=== PATIENT | male | born 1945 | race African-American/Black ===

== ENCOUNTER 2019-12-12 02:17 | Outpatient (CLI) | payer MEDICARE, SELFPAY ==
[2019-12-12 18:39] LABS: SARS-CoV-2 RNA PCR Negative
== END 2019-12-12 02:18 | disposition home or self-care (01) ==
LOC: ANHCOVIDDT 02:17
PROVIDERS: PCP Family Medicine; Visit Provider Internal Medicine Gastroenterology
DX: Z01.812 Encounter for preprocedural laboratory examination (principal); Z11.59 Encounter for screening for other viral diseases
CPT/HCPCS: 87635; C9803; U0003

== ENCOUNTER 2019-12-14 01:49 | Day surgery (SDC) | payer MEDICARE, SELFPAY ==
[2019-12-10 10:16] VITALS: BMI 29.3
[2019-12-14 08:52] VITALS: BP 172/83; PULSE 86; RESP 18; TEMP 36.2; O2SAT 99
[2019-12-14 09:12] LABS: Glucose Point of Care 118 (65-105)
[2019-12-14] MEDS: LACTATED RINGERS 1,000 ML 150 ML IV CONT (09:16)
[2019-12-14 09:28] LABS: INR 1.1; Prothrombin Time 13.4 Seconds (11.1-14.7)
--- NOTE | 2019-12-14 09:28 | WPDGICN ---
Assessment and Plan Assessment and plan (1) History of colon polyps: Code(s): Z86.010 - Personal history of colonic polyps Status: Acute Assessment and Plan: Plan is for surveillance colonoscopy today is been 7 years since last endoscopy. High-fiber diet advised. Further recommendations will be given after colonoscopy. (2) Paroxysmal atrial fibrillation: Code(s): I48.0 - Paroxysmal atrial fibrillation Status: Acute (3) Diabetes: Code(s): E11.9 - Type 2 diabetes mellitus without complications Status: Acute (4) Hypertension: Code(s): I10 - Essential (primary) hypertension Status: Acute GI Consult Note Consult date/time: 12/14/19 09:28 HPI: Pb Clarke is a 74 year old male seen in evaluation at the request of Dr Amelia Jc. Patient presents for surveillance colonoscopy. Patient has a history of adenomatous colon polyps removed from the colon . most recent colonoscopy was in 2012. Patient states his current weight appetite bowel movements are normal. He currently denies abdominal pain. His bowel habits are regular. He denies any obvious blood in his stools. Family history is normal. No family history of colon or rectal disease described. Review of Systems Review of Systems: All systems reviewed & are unremarkable except as noted in HPI and below PMFSH Past Medical History Medical History Anemia Anxiety Cellulitis LEFT LEG Diabetes Elective replacement indicated for pacemaker (~2009) Hypertension Migraine Mixed hyperlipidemia Normal colonoscopy Paroxysmal atrial fibrillation Stroke WPW syndrome Surgical History Surgical History History of nasal septoplasty Family History Family History Other Arthritis Cerebrovascular accident Diabetes mellitus Hypertension Social History Social History Smoking status: Never smoker Second hand tobacco smoke exposure: No Alcohol intake: never Substance use: never Meds Home Medications and Allergies Home Medications Medication Instructions Recorded Confirmed Type metoprolol succinate 100 mg 100 mg PO BID #180 tablet 05/02/19 12/10/19 Rx tablet,extended release 24 hr propafenone 150 mg tablet 150 mg PO Q8H #180 tablet 05/02/19 12/10/19 Rx amlodipine 5 mg tablet 5 mg PO DAILY #90 tablet 05/24/19 12/10/19 Rx atorvastatin 20 mg tablet 20 mg PO DAILY #90 tablet 05/24/19 12/10/19 Rx gabapentin 300 mg capsule 300 mg PO DAILY #90 cap 05/24/19 12/10/19 Rx hydralazine 10 mg tablet 10 mg PO TID #270 tablet 05/24/19 12/10/19 Rx latanoprost 0.005 % eye drops 1 drop EACH EYE DAILY #225 ml 05/24/19 12/10/19 Rx metformin 1,000 mg tablet 1,000 mg PO BID #180 tablet 05/24/19 12/10/19 Rx potassium chloride 10 mEq 10 meq PO DAILY #90 tablet 07/03/19 12/10/19 Rx tablet,extended release insulin detemir U-100 100 unit/mL See Rx Instructions .ROUTE 08/19/19 12/10/19 Rx (3 mL) subcutaneous pen .COMPLEX #30 ml furosemide 40 mg tablet 40 mg PO QAM #90 tablet 09/27/19 12/10/19 Rx losartan 100 mg tablet 100 mg PO DAILY #90 tablet 09/27/19 12/10/19 Rx warfarin 3 mg tablet See Rx Instructions .ROUTE 10/01/19 12/10/19 Rx .COMPLEX #90 tablet pen needle, diabetic 31 gauge x See Rx Instructions .ROUTE 11/15/19 12/10/19 Rx 5/16 .COMPLEX #100 each Allergies Allergy/AdvReac Type Severity Reaction Status Date / Time No Known Allergies Allergy Verified 12/14/19 08:50 Vital Signs Vital Signs - 24 hr 12/14/19 08:52 Temperature 97.1 F L Pulse Rate 86 Respiratory Rate 18 Blood Pressure 172/83 H Pulse Oximetry 99 Exam Narrative: Exam Narrative: Physical exam reveals patient to be alert. Vital signs stable. HEENT exam unremarkable. Lungs are clear to auscultation and percussio
--- NOTE | 2019-12-14 09:41 | WPDANESEPPF ---
Anes - Initial Pre Proc Eval Procedure: Operation Date: 12/14/19 10:00 Proposed Procedures p Screening Colonoscopy - Ever Renteria MD Date/Time: 12/14/19 09:41 Surgeon: Ever Renteria MD Pre Op Diagnosis: Hx of Colon Polyps Patient Data Age: 74 Gender: M Height: 5 ft 7 in Weight: 85.8 kg Last Vital Signs Temp 97.1 F L 12/14/19 08:52 Pulse 86 12/14/19 08:52 Resp 18 12/14/19 08:52 BP 172/83 H 12/14/19 08:52 Pulse Ox 99 12/14/19 08:52 Allergies Allergy/AdvReac Type Severity Reaction Status Date / Time No Known Allergies Allergy Verified 12/14/19 08:50 Home Medications Medication Instructions Recorded Confirmed Type metoprolol succinate 100 mg 100 mg PO BID #180 tablet 05/02/19 12/10/19 Rx tablet,extended release 24 hr propafenone 150 mg tablet 150 mg PO Q8H #180 tablet 05/02/19 12/10/19 Rx amlodipine 5 mg tablet 5 mg PO DAILY #90 tablet 05/24/19 12/10/19 Rx atorvastatin 20 mg tablet 20 mg PO DAILY #90 tablet 05/24/19 12/10/19 Rx gabapentin 300 mg capsule 300 mg PO DAILY #90 cap 05/24/19 12/10/19 Rx hydralazine 10 mg tablet 10 mg PO TID #270 tablet 05/24/19 12/10/19 Rx latanoprost 0.005 % eye drops 1 drop EACH EYE DAILY #225 ml 05/24/19 12/10/19 Rx metformin 1,000 mg tablet 1,000 mg PO BID #180 tablet 05/24/19 12/10/19 Rx potassium chloride 10 mEq 10 meq PO DAILY #90 tablet 07/03/19 12/10/19 Rx tablet,extended release insulin detemir U-100 100 unit/mL See Rx Instructions .ROUTE 08/19/19 12/10/19 Rx (3 mL) subcutaneous pen .COMPLEX #30 ml furosemide 40 mg tablet 40 mg PO QAM #90 tablet 09/27/19 12/10/19 Rx losartan 100 mg tablet 100 mg PO DAILY #90 tablet 09/27/19 12/10/19 Rx warfarin 3 mg tablet See Rx Instructions .ROUTE 10/01/19 12/10/19 Rx .COMPLEX #90 tablet pen needle, diabetic 31 gauge x See Rx Instructions .ROUTE 11/15/19 12/10/19 Rx /16 .COMPLEX #100 each Laboratory Tests 12/14/19 12/14/19 08:55 08:58 PT 13.4 Seconds Seconds (11.1-14.7) INR 1.1 POC Capillary Glucose 118 mg/dl H mg/dl (65-105) Patient hx anesthesia problems: none Family hx anesthesia problems: none PMFSH Past Medical History Medical History Anemia Anxiety Cellulitis LEFT LEG Diabetes Elective replacement indicated for pacemaker (~2009) Hypertension Migraine Mixed hyperlipidemia Normal colonoscopy Paroxysmal atrial fibrillation Stroke WPW syndrome Surgical History Surgical History History of nasal septoplasty Family History Family History Other Arthritis Cerebrovascular accident Diabetes mellitus Hypertension Social History Social History Smoking status: Never smoker Second hand tobacco smoke exposure: No Alcohol intake: never Substance use: never Anes - Eval Final PreProcedure Day of Procedure 12/14/19 09:41 Patient weight: normal Heart: irregular rhythm Lungs: clear to auscultation Airway: Mallampati scale class II Neurological: alert and oriented Last oral intake: >/= 8 hours ASA classification: III Emergent: no Anesthetic plan: proceed Anesthesia type and monitoring: general GIVS and standard monitoring Informed Consent: The patient's anesthetic plan and its attendant risks and benefits were discussed with the patient/family/POA. Questions were solicited and answers provided to the satisfaction of the patient/family/POA.
[2019-12-14 10:38] VITALS: BP 125/66; PULSE 64; RESP 21; O2SAT 100
[2019-12-14 10:48] VITALS: BP 136/67; PULSE 65; RESP 21; O2SAT 100
[2019-12-14 10:53] LABS: Glucose Point of Care 112 (65-105)
[2019-12-14 10:58] VITALS: BP 132/79; PULSE 60; RESP 21; O2SAT 100
== END 2019-12-14 11:10 | disposition home or self-care (01) ==
PROVIDERS: PCP Family Medicine; Visit Provider Internal Medicine Gastroenterology
PROC: 0DJD8ZZ Inspection of Lower Intestinal Tract, Via Natural or Artificial Opening Endoscopic (ICD-10-PCS; CPT 45378; principal; 2019-12-14 10:00)
DX: Z12.11 Encounter for screening for malignant neoplasm of colon (principal); D12.5 Benign neoplasm of sigmoid colon; K63.5 Polyp of colon; K64.8 Other hemorrhoids; I10 Essential (primary) hypertension; I48.0 Paroxysmal atrial fibrillation; E11.9 Type 2 diabetes mellitus without complications; E78.2 Mixed hyperlipidemia; I45.6 Pre-excitation syndrome; Z79.84 Long term (current) use of oral hypoglycemic drugs; Z79.4 Long term (current) use of insulin; Z79.01 Long term (current) use of anticoagulants
CPT/HCPCS: 45385; 36415; 85610; 87635; 88305; C9803; J2001; J2704; J7120; U0003

== ENCOUNTER 2020-07-21 11:21 | Outpatient (CLI) | payer MEDICARE, SELFPAY ==
--- NOTE | ~2020-07-21 | US_ITS ---
EXAMINATION: US renal BI EXAM DATE: 07/21/2020 11:53 INDICATION: N18.30 - Chronic kidney disease, stage 3 unspecified. TECHNIQUE: Multiple grayscale and Doppler images of the kidneys were obtained (by a technologist who performed the scan) and subsequently reviewed. There is no prior study for comparison. FINDINGS: Right kidney: There is normal contour and echogenicity. It measures 8.6 x 4.7 x 3.7 centimeters. Th ere are no focal renal lesions identified. There is no hydronephrosis. Left kidney: Suboptimally visualized. There is normal contour and echogenicity. It measures 8.7 x 4. 3 x 4.4 centimeters. There are no focal renal lesions identified. There is no hydronephrosis. Bladder is undistended, unremarkable. IMPRESSION: 1. Mild bilateral renal atrophy. Reviewed, dictated and finalized at location A. ENT SERVICES COORDINATOR
== END 2020-07-21 11:22 | disposition home or self-care (01) ==
LOC: ANHIMG 11:30
PROVIDERS: PCP Family Medicine; Visit Provider Family Medicine
DX: N18.30 Chronic kidney disease, stage 3 unspecified (principal)
CPT/HCPCS: 76775

== ENCOUNTER 2020-09-22 08:13 | Outpatient (CLI) | payer MEDICARE, SELFPAY ==
--- NOTE | ~2020-09-22 | US_ITS ---
EXAMINATION: US retroperitoneal duplex ltd DATE: 09/22/2020 09:34 INDICATION: Essential hypertension TECHNIQUE: Multiple grayscale, color Doppler, and pulsed Doppler images of the kidneys and renal alexsandra machelle were obtained. COMPARISON: None. FINDINGS: The aorta peak systolic velocity is 58 cm/s. The right renal artery peak systolic velocity is 144 cm/ s in the proximal segment, 67 cm/s in the mid segment, and 79 cm/s in the distal segment. The left re nal artery peak systolic velocity is 89 cm/s in the proximal segment, 97 cm/s in the mid segment, and 73 cm/s in the distal segment. Right kidney measures 8.8 x 4.2 x 4.7 cm with normal echogenicity and no hydronephrosis. Left kidney measures 9.7 x 5.2 x 4.3 cm also with normal echogenicity and no hydr onephrosis. 3.1 cm anechoic cyst at the medial left kidney. There are elevated bilateral renal artery resistive indices measuring 0.68-0.77 on the right and 0.77 on the left. The bilateral renal veins a re patent with asymmetric increased pulsatility on the left. IMPRESSION: 1. No Doppler evidence of renal artery stenosis. 2. Bilateral elevated resistive indices of the renal arteries within both kidneys. Reviewed, dictated and finalized at location A. IMPRESSION: 1. No Doppler evidence of renal artery stenosis. 2. Bilateral elevated resistive indices of the renal arteries within both kidne ys.
== END 2020-09-22 08:14 | disposition home or self-care (01) ==
PROVIDERS: PCP Family Medicine; Visit Provider Internal Medicine Nephrology
DX: I10 Essential (primary) hypertension (principal); R80.1 Persistent proteinuria, unspecified
CPT/HCPCS: 93976

== ENCOUNTER 2022-03-19 14:15 | Outpatient (CLI) | payer MEDICARE, SELFPAY ==
--- NOTE | ~2022-03-19 | XR_ITS ---
EXAMINATION: XR lumbar spine min 4V DATE: 03/19/2022 14:40 INDICATION: Chronic bilateral low back pain radiating down the right leg. TECHNIQUE: 5 views of lumbar spine were obtained. COMPARISON: Lumbar spine radiographs 05/06/2018, lumbar spine CT 01/13/2010 FINDINGS: There is 23 degrees dextroscoliosis of lumbar spine. Vertebral body heights are normal. The re is mildly decreased disc height at L1-L2 and L2-L3 and moderately decreased disc height at L3-L4 a nd L4-L5. There is multilevel moderate to severe facet joint osteoarthritis. IMPRESSION: 1. Moderate lumbar spondylosis. 2. Thoracolumbar dextroscoliosis. Reviewed, dictated and finalized at location A.
--- NOTE | ~2022-03-19 | XR_ITS ---
EXAMINATION: XR cervical spine 4-5V DATE: 03/19/2022 14:40 INDICATION: Chronic right-sided neck pain. TECHNIQUE: 4 views of cervical spine were obtained. COMPARISON: Cervical spine radiographs 12/20/2010 FINDINGS: There is 16 degrees levoscoliosis of cervicothoracic spine. There is mild kyphosis of cervi gerald spine. Vertebral body heights are normal. There is mildly decreased disc height at C4-C5, C5-C6, and C6-C7. There is multilevel uncovertebral joint osteoarthritis, severe bilaterally from C4-C5 thro ugh C6-C7. There is multilevel mild to moderate facet joint osteoarthritis, worst on the right at C3- C4 and C4-C5.. There is mild central canal stenosis at C4-C5, C5-C6, and C6-C7. No prevertebral soft tissue swelling. IMPRESSION: 1. Moderate cervical spondylosis. 2. Cervicothoracic levoscoliosis. Reviewed, dictated and finalized at location A.
--- NOTE | ~2022-03-19 | CT_ITS ---
EXAMINATION: CT brain wo/w con DATE: 03/19/2022 14:51 INDICATION: Disturbance. Memory loss. TECHNIQUE: Computed tomography (CT) of the head was performed without and with 100 cc Omnipaque 350 n o depressed skull fractures. intravenous contrast. The dose-length product was 1210.67 mGy-cm. Automa nate exposure control and iterative reconstruction technique were employed. COMPARISON: None FINDINGS: Mild generalized atrophy. There are scattered mild periventricular and subcortical white ma tter changes, most likely related to small vessel ischemic disease (microangiopathy). No ventriculome soto or midline shift. Basilar cisterns are patent. Paranasal sinuses and mastoids are pneumatized. N o depressed skull fractures. No abnormal contrast enhancement IMPRESSION: 1. No acute intracranial abnormality. 2: Chronic age-related findings. Reviewed, dictated and finalized at location B.
[2022-03-19 14:46] LABS: Estimated Glomerular Filt Rate 55
== END 2022-03-19 14:16 | disposition home or self-care (01) ==
LOC: ANHIMG 14:18
PROVIDERS: PCP Family Medicine; Visit Provider Family Medicine
DX: R41.3 Other amnesia (principal); R26.9 Unspecified abnormalities of gait and mobility; R20.2 Paresthesia of skin; M47.896 Other spondylosis, lumbar region; M47.892 Other spondylosis, cervical region
CPT/HCPCS: 70470; 72050; 72110; Q9967

== ENCOUNTER 2023-01-12 14:30 | Outpatient (RCR) | payer MEDICARE, SELFPAY ==
[2022-11-04 10:46] VITALS: BMI 28.3
[2022-11-04 11:13] VITALS: BMI 28.3
== END 2023-01-19 09:52 | disposition home or self-care (01) ==
LOC: ANHDMC 14:30
PROVIDERS: PCP Family Medicine; Visit Provider Family Medicine
DX: E11.65 Type 2 diabetes mellitus with hyperglycemia (principal); Z71.3 Dietary counseling and surveillance; Z71.89 Other specified counseling
CPT/HCPCS: 97802; G0108; G0109

== ENCOUNTER 2023-04-07 15:12 | Outpatient (RCR) | payer MEDICARE, SELFPAY | END 2023-04-08 16:27 | disposition home or self-care (01) | LOC: ANHDMC 15:12 | PROVIDERS: PCP Family Medicine; Visit Provider Family Medicine | DX: E11.65 Type 2 diabetes mellitus with hyperglycemia (principal); Z71.89 Other specified counseling | CPT/HCPCS: G0109 ==

== ENCOUNTER 2023-10-25 12:15 | Outpatient (CLI) | payer MEDICARE, SELFPAY ==
--- NOTE | 2023-10-25 12:24 | ECG_ITS ---
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 Measurements Intervals [place] Rate: 77 P: 214 MS: 256 QRS: -56 QRSD: 86 T: 31 QT: 357 QTc: 406 Interpretive Statements ELECTRONIC ATRIAL PACEMAKER MARKED LEFT AXIS DEVIATION [QRS AXIS < -30] LOW QRS VOLTAGE [QRS DEFLECTION < 0.5/1.0 mV IN LIMB/CHEST LEADS] INFERIOR MYOCARDIAL INFARCTION , PROBABLY OLD [40+ ms Q WAVE AND/OR ST/T ABNORMALITY IN II/aVF] ANTEROSEPTAL MYOCARDIAL INFARCTION , PROBABLY OLD [40+ ms Q WAVE IN V1-V4] No previous ECG available for comparison Electronically Signed On 10-25-2023 14:26:47 CDT by Wero Yuan M.D.
== END 2023-10-25 12:16 | disposition home or self-care (01) ==
LOC: ANHCARD 12:17
PROVIDERS: PCP Family Medicine; Visit Provider Family Medicine
DX: I48.0 Paroxysmal atrial fibrillation (principal); Z95.0 Presence of cardiac pacemaker
CPT/HCPCS: 93005

== ENCOUNTER 2023-12-19 13:33 | Outpatient (CLI) | payer MEDICARE, SELFPAY ==
--- NOTE | ~2023-12-19 | US_ITS ---
EXAMINATION: US soft tissue head and neck DATE: 12/19/2023 13:48 INDICATION: Disorder of thyroid, unspecified. TECHNIQUE: Multiple ultrasound images of the thyroid were obtained. COMPARISON: None. FINDINGS: The right thyroid lobe measures 5.1 x 1.9 x 1.7 cm. The left thyroid lobe measures 4.5 x 1.5 x 1.5 c m. In the left thyroid lobe, there is an 18 mm solid, hypoechoic, wider than tall nodule with ill-de fined margin without echogenic foci (TI-RADS TR4). In the left thyroid lobe, there are two 5 mm solid , hypoechoic, wider than tall nodules with smooth margin without echogenic foci (TR4). IMPRESSION: 1. Thyroid nodules. Ultrasound-guided fine-needle aspiration of the 18 mm left thyroid nodule is breanna mmended. Reviewed, dictated and finalized at location A. IMPRESSION: 1. Thyroid nodules. Ultrasound-guided fine-needle aspiration of the 18 mm left thyroid nodule is recommended.
== END 2023-12-19 13:34 ==
PROVIDERS: PCP Family Medicine; Visit Provider Student in an Organized Health Care Education/Training Program
DX: E07.9 Disorder of thyroid, unspecified (principal); E04.2 Nontoxic multinodular goiter
CPT/HCPCS: 76536

== ENCOUNTER 2024-02-13 12:38 | Outpatient (CLI) | payer MEDICARE, SELFPAY ==
--- NOTE | ~2024-02-13 | US_ITS ---
EXAMINATION: US FNA w image guidance DATE: 02/13/2024 13:57 INDICATION: Nontoxic single thyroid nodule. TECHNIQUE: The procedure and its benefits and risks were discussed with the patient. Risks specifically discusse d included bleeding. The patient verbalized understanding of the risks and agreed to proceed. The nec k was prepped and draped in the usual sterile manner. 1% lidocaine was used for local anesthesia. 6 passes were made with a 25G needle into the lesion under ultrasound guidance. There were no immedia te complications. FINDINGS: Grayscale ultrasound images demonstrate needles advanced into an 18 mm nodule in left thyroid lobe fo r biopsy. IMPRESSION: 1. Ultrasound-guided fine needle aspiration of a left thyroid nodule. Reviewed, dictated and finalized at location A.
== END 2024-02-13 12:39 | disposition home or self-care (01) ==
LOC: ANHIMG 12:40
PROVIDERS: PCP Family Medicine; Visit Provider Family Medicine
DX: E04.1 Nontoxic single thyroid nodule (principal)
CPT/HCPCS: 10005; 88172; 88173; 88305; 88307

== ENCOUNTER 2024-12-25 10:30 | Outpatient (CLI) | payer MEDICARE, SELFPAY ==
--- NOTE | ~2024-12-25 | US_ITS ---
EXAMINATION: US thyroid DATE: 12/25/2024 10:57 INDICATION: Nontoxic single thyroid nodule TECHNIQUE: Multiple ultrasound images of the thyroid were obtained. COMPARISON: 12/19/2023 FINDINGS: The right thyroid lobe measures 4.8 x 2.1 x 1.6 cm. The left thyroid lobe measures 4.0 x 1.7 x 1.2 c m. No significant change in a 1.7 cm solid hypoechoic nodule which is thought than wide, with lobula r margins but without echogenic foci at the deep mid left thyroid (TI-RADS 5, highly suspicious , FNA if >=1.0 cm, annual followup is >0.5 cm). There is in significant 3 mm likely solid hypoechoic TI RA DS 4 right thyroid nodule. There is normal echotexture, echogenicIty and vascular flow throughout the remainder of the thyroid gland. IMPRESSION: 1. No interval change in a 1.7 cm TI RADS 5 left thyroid nodule which was biopsied on 02/12/2024 with pathology read as consistent with a benign follicular nodule. Reviewed, dictated and finalized at location A. IMPRESSION: 1. No interval change in a 1.7 cm TI RADS 5 left thyroid nodule which was biops ied on 02/12/2024 with pathology read as consistent with a benign follicular no dule.
== END 2024-12-25 10:31 | disposition home or self-care (01) ==
LOC: MICIMG 10:32
PROVIDERS: PCP Family Medicine; Visit Provider Family Medicine
DX: E04.1 Nontoxic single thyroid nodule (principal)
CPT/HCPCS: 76536